=== PATIENT | female | born 1960 ===

== ENCOUNTER 2022-06-18 16:53 | Emergency (ER) | payer MEDICARE, MEDICAID | END 2022-06-18 19:20 | LOC: MW.ED 16:53 | DX: Z02.89 Encounter for other administrative examinations (principal); Z79.82 Long term (current) use of aspirin; Z79.899 Other long term (current) drug therapy; Z79.4 Long term (current) use of insulin; Z79.84 Long term (current) use of oral hypoglycemic drugs | CPT/HCPCS: 82947; 99283 ==